=== PATIENT | female | born 1975 | race Two or more races ===

== ENCOUNTER 2020-05-08 23:36 | Emergency (ER) | payer SELFPAY ==
[~2020-05-08] VITALS: Ht 165.1 cm; Wt 114.5 kg
[~2020-05-08 23:36] MED LIST: OXYC1TAB15 PO
[2020-05-09] MEDS ORDERED: ORPHENADRINE CITRATE 60 MG/2 ML VIAL. IM ONE (00:15)
--- NOTE | 2020-05-09 00:25 | PHYS DOC ---
Past Medical History Past Medical History: Other Past Surgical History: , Other Smoking Status: Never Smoker Alcohol Use: None Drug Use: None General Adult EDM: Chief Complaint: MECHANICAL FALL HPI: HPI: Patient is a 44-year-old female who presents after a fall. She walked out of her house at 1700 tonight when she slipped on the ice and fell from standing height onto her upper back and posterior head. She did not lose consciousness and remembers everything before and after the fall. She denies any nausea or vomiting or changes in vision. She states she now has a residual headache and dizziness. She is not on any blood thinners. She has taken 600 mg of ibuprofen for the pain with no relief. Review of Systems: Review of Systems: Constitutional: Denies fever or chills Eyes: Denies redness or eye pain HENT: Denies nasal congestion or sore throat Respiratory: Denies cough or shortness of breath Cardiovascular: Denies chest pain or palpitations GI: Denies abdominal pain, nausea, or vomiting : Denies dysuria or hematuria Musculoskeletal: Admits pain in the upper back and posterior head. Integument: Denies rash or skin lesions Neurologic: Admits headache and dizziness, denies focal weakness or sensory changes Complete systems were reviewed and found to be within normal limits, except as documented in this note. Current Medications: Current Medications Medications (Trade) Dose Ordered Sig/Aysmany Start Time Stop Time Status Last Admin Dose Admin Orphenadrine Citrate (Norflex) 60 mg 1X ONCE 05/09/20 00:15 05/09/20 00:16 DC Allergies: Allergies: Allergies Coded Allergies Type Severity Reaction Last Updated Verified No Known Drug Allergies 10/07/15 No Physical Exam: PE: Constitutional: Wearing c-collar well developed, well nourished, no acute distress, non-toxic appearance HENT: tenderness over occipital region of head, nonbleeding bite carey to tongue, normocephalic, atraumatic, no de la vega sign, no raccoon eyes, no otorrhea, TMs clear Eyes: PERRL, EOMI, conjunctiva normal, no discharge Neck: Normal range of motion, no tenderness, supple Lungs & Thorax: No respiratory distress, equal chest rise and fall Abdomen: Soft, no tenderness Skin: Warm, dry, no erythema, no rash Back: No tenderness, no CVA tenderness Extremities: T-spine tenderness, , ROM intact, no edema Neurologic: Alert and oriented X 3, normal motor function, normal sensory function, no focal deficits noted Psychologic: Affect normal, judgment normal EKG: EKG: [] Radiology/Procedures: Radiology/Procedures: [] Course & Med Decision Making: Course & Med Decision Making Patient is a 44-year-old female presenting after a fall. Plan to obtain CT head and neck to rule out any intracranial bleeding or fractures. Pertinent Labs and Imaging studies reviewed. (See chart for details) Patient stable for discharge with outpatient follow-up with PCP. Discussed findings and plan with patient, who acknowledges understanding and agreement. Dragon Disclaimer: [employer] Disclaimer: This electronic medical record was generated, in whole or in part, using a voice recognition dictation system. Departure Departure Impression: Primary Impression: Fall Qualified Codes: W19.XXXA - Unspecified fall, initial encounter Additional Impressions: Head contusion Qualified Codes: S00.93XA - Contusion of unspecified part of head, initial encounter Cervical strain, acute Qualified Codes: S16.1XXA - Strain of muscle, fascia and tendon at neck level, initial encounter Disposition: 01 DC HOME SELF CARE/HOMELESS Condition: STABLE Patient Instructions: Cervical Strain and Sprain with [facility]hab[facility], Facial or Scalp Contusion, [id number], Fall Prevention and Home Safety, [id number] Additional Instructions: ICE 20 min on and then off for next few day as needed. Take over the counter Tylenol and/or Ibuprofen for pain or discomfort. Scripts Orphenadrine Citrate (ORPHENADRINE CITRATE) 100 Mg Tablet.er 100 MG PO BID PRN for MUSCLE PAIN, #14 TAB Prov: RASHAWN QUEZADA DO 05/09/20 RASHAWN QUEZADA DO May 09, 2020 00:25
--- NOTE | 2020-05-09 01:30 | RAD ---
STUDY: CT head and cervical spine without contrast INDICATION: Headache. Fall. COMPARISON: None. TECHNIQUE: Axial CT imaging through the head and cervical spine without the use of intravenous contra st. Sagittal and coronal reformats were obtained. One or more of the following individualized dose reduction techniques were utilized for this examinat ion: 1. Automated exposure control 2. Adjustment of the mA and/or kV according to patient size 3. Use of iterative reconstruction technique. FINDINGS: CT head: No acute intracranial hemorrhage. No mass effect, midline shift or hydrocephalus. Graham-white matter d ifferentiation is maintained. No depressed calvarial fracture. No layering fluid seen within the visualized paranasal sinuses. Unre markable mastoid air cells and middle ears. CT cervical spine: No acute fracture or traumatic malalignment. No advanced cervical spondylosis. No severe osseous central canal or neural foraminal stenosis. No soft tissue sequela of trauma. Unremarkable thyroid and lung apices. IMPRESSION: CT head: 1. No acute intracranial abnormality by CT. CT cervical spine: 1. No acute fracture or traumatic malalignment. Electronically signed by: BARNEY ELVINE MD (05/09/2020 1:27 AM) [facility] [place]
[2020-05-09] MEDS ORDERED: ORPH100T PO (01:37)
[2020-05-09 01:48] VITALS: BP 144/70
== END 2020-05-09 01:54 | disposition home or self-care (01) ==
LOC: ER 23:36
DX: S00.93XA Contusion of unspecified part of head, initial encounter (principal); S16.1XXA Strain of muscle, fascia and tendon at neck level, initial encounter; R42 Dizziness and giddiness; W00.0XXA Fall on same level due to ice and snow, initial encounter; Y93.89 Activity, other specified; Y92.89 Other specified places as the place of occurrence of the external cause; Y99.8 Other external cause status
CPT/HCPCS: 70450; 72125; 96372; 99285; J2360